=== PATIENT | female | born 1965 | race Caucasian/White ===

== ENCOUNTER 2019-11-26 09:47 | Emergency (ER) | payer OTHER, SELFPAY ==
[~2019-11-26] VITALS: Ht 165.1 cm; Wt 90.7 kg
[2019-11-26 09:48] VITALS: Ht 165.1 cm; Wt 90.7 kg
[2019-11-26 12:35] VITALS: BP 139/72
== END 2019-11-26 12:35 | disposition home or self-care (01) ==
LOC: ED 09:47
DX: J40 Bronchitis, not specified as acute or chronic (principal); Z20.828 Contact with and (suspected) exposure to other viral communicable diseases
CPT/HCPCS: Q0092; U0003-CS